=== PATIENT | male | born 1975 | race African-American/Black ===

== ENCOUNTER 2018-10-03 01:23 | Emergency (ER) | payer SELFPAY ==
--- NOTE | 2018-10-03 02:32 | RADIOLOGY REPORT (SQ) ---
EXAM DESCRIPTION: XR KNEE 4 OR MORE VIEWS COMPLETED DATE/TME: 10/03/2018 00:00 CLINICAL HISTORY: 43 years, Male, pain/swelling COMPARISON: None. NUMBER OF VIEWS: Four TECHNIQUE: Four views of the left knee LIMITATIONS: None. FINDINGS: There is no acute fracture or dislocation. Mild medial compartment joint space narrowing with subchondral sclerosis. There is no joint effusion. No radiopaque foreign body. No large soft tissue swelling. IMPRESSION: No acute fracture or dislocation copyright 2010 [employer]- All Rights Reserved
[2018-10-03] MEDS ORDERED: ACETAMINOPHEN 325 MG TABLET PO ONE (02:47)
[2018-10-03] MEDS ORDERED: KETOROLAC TROMETHAMINE 60 MG/2 ML SDV IM ONE (02:47)
--- NOTE | 2018-10-03 02:49 | ER Document Report ---
ED General - General Chief Complaint: Knee Pain Stated Complaint: KNEE PAIN Time Seen by Provider: 10/03/18 02:41 Primary Care Provider: JUAN R HARDEN DO [NO LOCAL MD] - Follow up as needed FINESSE MORA DO [ACTIVE STAFF] - Follow up as needed Notes: Patient is a 43-year-old male without chronic medical history who presents with approximately 4-5 hours of left knee pain. States that he was lying on his cou ch, turned over and began having an intense, throbbing, constant pain to the medial aspect of his left knee. States that it has been constant since that time worsened by range of motion trying to improve the pain. No history of similar pain in the past. Has not seen his primary doctor regarding tonight denies any direct trauma to the knee. Has not noted any swelling, discoloration or abnormal sensation to the area. Does state that the pain shoots up into his thigh. No history of DVT or pulmonary embolus. No fever or constitutional symptoms. Able to walk but states that it does cause severe pain. TRAVEL OUTSIDE OF THE [place] IN LAST 30 DAYS: No - Related Data Allergies/Adverse Reactions: No Known Allergies Allergy (Unverified 10/01/13 00:17) Past Medical History - General Information source: Patient - Social History Smoking Status: Current Every Day Smoker Chew tobacco use (# tins/day): No Frequency of alcohol use: None Drug Abuse: None Family History: Reviewed & Not Pertinent Patient has suicidal ideation: No Patient has homicidal ideation: No Renal/ Medical History: Denies: Hx Peritoneal Dialysis Psychiatric Medical History: Reports: Hx Anxiety, Hx Depression Past Surgical History: Reports: Hx Orthopedic Surgery - hand - Immunizations Hx Diphtheria, Pertussis, Tetanus Vaccination: Yes - 2012 Review of Systems - Review of Systems Notes: Constitutional: Negative for fever. HENT: Negative for sore throat. Eyes: Negative for visual changes. Cardiovascular: Negative for chest pain. Respiratory: Negative for shortness of breath. Gastrointestinal: Negative for abdominal pain, vomiting or diarrhea. Genitourinary: Negative for dysuria. Musculoskeletal: Positive for left knee pain Skin: Negative for rash. Neurological: Negative for headaches, weakness or numbness. 10 point ROS negative except as marked above and in HPI. Physical Exam - Vital signs Vitals: Temp Pulse Resp BP Pulse Ox 98.0 F 85 16 145/65 H 97 10/03/18 01:30 10/03/18 01:30 10/03/18 01:30 10/03/18 01:30 10/03/18 01:30 Interpretation: Hypertensive Notes: PHYSICAL EXAMINATION: GENERAL: Well-appearing, well-nourished and in no acute distress. HEAD: Atraumatic, normocephalic. EYES: sclera anicteric, conjunctiva are normal. ENT: Moist mucous membranes. NECK: Normal range of motion LUNGS: Normal work of breathing HEART: 2+ DP pulses bilaterally, 2+ popliteal pulses bilaterally EXTREMITIES: Full flexion to 90 degrees in the left knee, able to fully extend the knee. There is pain on palpation of the medial aspect of the left knee without any notable swelling or induration to the area. No pitting or edema. No cyanosis. NEUROLOGICAL: No focal neurological deficits. Moves all extremities spontaneously and on command. PSYCH: Normal mood, normal affect. SKIN: Warm, Dry, normal turgor, no rashes or lesions noted. Course - Re-evaluation Re-evalutation: 10/03/18 02:48 No evidence of a septic joint, gout flare, dislocation, or fracture on exam and imaging. There is no notable swelling to the medial aspect of the knee where the patient reports pain. He has strong DP pulses, strong popliteal pulse. He is able to flex the knee to 90 degrees. Able to fully extend the knee. No direct trauma to the area. Somewhat unusual presentation but I do not see any evidence of dangerous pathology at this time. I have advised the patient that there is a degree of diagnostic uncertainty given the somewhat atypical nature of his presentation and he should have a low threshold to return to the emergency department today. I have advised outpatient follow-up with orthopedic surgery if his symptoms are not improving with anti-inflammatories over the next 1-2 days. Vitals wnl. At this time, I do not see an indication for labs or further imaging. Will discharge with conservative measures, return precautions, and follow-up recommendations. - Vital Signs Vital signs: Temp Pulse Resp BP Pulse Ox 98.0 F 85 16 145/65 H 97 10/03/18 01:30 10/03/18 01:30 10/03/18 01:30 10/03/18 01:30 10/03/18 01:30 - Diagnostic Test Radiology reviewed: Image reviewed, Reports reviewed Radiology results interpreted by me: 10/03/18 02:49 Left knee x-ray: No acute fracture or dislocation Discharge - Discharge Clinical Impression: Left knee pain Qualifiers: Chronicity: acute Qualified Code(s): M25.562 - Pain in left knee Condition: Good Disposition: HOME, SELF-CARE Additional Instructions: Your x-ray does not show any acute fracture today. You may have a ligamentous strain. You should continue to take anti-inflammatories such as ibuprofen 600 mg every 6 hours. Continue to apply ice to the area is much your able. Please follow-up with your primary care physician if you do not have improving your symptoms in the next 1-2 weeks. Please return immediately if you develop weakness, numbness, spreading redness from the area, or any other symptoms that are concerning to you. Referrals: JUAN R HARDEN, [NO LOCAL MD] - Follow up as needed FINESSE MORA DO [ACTIVE STAFF] - Follow up as needed
[2018-10-03 03:37] VITALS: BP 120/65
== END 2018-10-03 03:37 | disposition home or self-care (01) ==
LOC: ER 01:23
DX: M25.562 Pain in left knee (principal); F17.200 Nicotine dependence, unspecified, uncomplicated
CPT/HCPCS: 99283; 96372; 73564; J1885

== ENCOUNTER 2018-10-03 13:06 | Emergency (ER) | payer SELFPAY ==
[2018-10-03] MEDS ORDERED: HYDROCODONE/ACETAMINOPHEN 5-325 MG TABLET PO ONE ×2 (14:16→15:55)
--- NOTE | 2018-10-03 14:23 | ER Document Report ---
ED General - General Chief Complaint: Hip Pain Stated Complaint: BACK/LEG PAIN Time Seen by Provider: 10/03/18 14:04 Primary Care Provider: STEFANO CASTELLANO MD [Primary Care Provider] - Follow up as needed Mode of Arrival: Ambulatory Information source: Patient TRAVEL OUTSIDE OF THE [place] IN LAST 30 DAYS: No - HPI Patient complains to provider of: Left hip, low back pain Onset: Other - Chronic Onset/Duration: Gradual, Persistent, Waxing and waning Quality of pain: Burning, Sharp Severity: Severe Pain Level: 4 Associated symptoms: None Exacerbated by: Denies Relieved by: Denies Similar symptoms previously: No Recently seen / treated by doctor: No Notes: 43-year-old -[place] male coming in today chief complaint low back and left hip pain that radiates down the left leg. Symptoms have been going on chronically for weeks. According to the girlfriend, patient is scared of seeing the doctor. He does have a primary care doctor but has not seen him for this yet. He was seen last night for left knee injury and was discharged home. He has no bladder or bowel dysfunction. No saddle anesthesia. No focal weakness. No urinary symptoms. - Related Data Allergies/Adverse Reactions: No Known Allergies Allergy (Verified 10/03/18 13:10) Past Medical History - General Information source: Patient - Social History Smoking Status: Current Every Day Smoker Family History: Reviewed & Not Pertinent Renal/ Medical History: Denies: Hx Peritoneal Dialysis Psychiatric Medical History: Reports: Hx Anxiety, Hx Depression Past Surgical History: Reports: Hx Orthopedic Surgery - hand - Immunizations Hx Diphtheria, Pertussis, Tetanus Vaccination: Yes - 2012 Review of Systems - Review of Systems Notes: Constitutional: No fevers. No chills. EENT: No eye redness. No eye pain. No ear pain. No sore throat. Cardiovascular: No chest pain. No palpitations. Respiratory: No cough. No shortness of breath. No respiratory distress. Gastrointestinal: No abdominal pain. No nausea, vomiting, or diarrhea. Genitourinary: Atraumatic. No lesions. No pain. No discharge. Musculoskeletal: Low back, left hip pain Skin: No rash or lesions. Lymphatic: No swollen lymph nodes. Neurologic: No headache. No syncope. Psychiatric: No suicidal or homicidal ideation. Physical Exam - Vital signs Vitals: Temp Pulse Resp BP Pulse Ox 98.2 F 91 18 136/64 H 100 10/03/18 13:11 10/03/18 13:11 10/03/18 13:11 10/03/18 13:11 10/03/18 13:11 - Notes Notes: General: Well-developed, well-nourished. In no acute distress. Non-toxic appearing. Cardiac: Well-perfused. Regular rate and rhythm. No murmurs, rubs, or gallops. Pulmonary: No respiratory distress. No cyanosis. Bilateral lung morrissey are clear to auscultation. Abdominal: Non-distended. Non-rigid. Bowels sounds are present in all four quadrants. No guarding or rebound. HEENT: Head is atraumatic. Conjunctivae not reddened. No tearing. PERRL. EOMI. Orbits atraumatic. No periorbital swelling or erythema. Oropharynx is without erythema, swelling, or exudates. Neck: Supple. No adenopathy. No meningismus. Dermatologic: Warm with good turgor. No rash. Atraumatic. Chest: Atraumatic. No chest wall tenderness to palpation. Musculoskeletal: Moves all extremities well. No range of motion deficits. no muscular or joint tenderness. The left lower extremity was compared to the right lower extremity and I did not appreciate any edema or erythema compared to the right side. There was no calf tenderness. Dorsalis pedis and posterior tibial pulses were 2+ bilaterally and equal. Genitourinary: Examination deferred Neurologic: No gross neurologic deficits. Psychiatric: Normal mood. Course - Re-evaluation Re-evalutation: 10/03/18 14:22 This is most likely pinched nerve or case of trochanteric bursitis. Will check some plain films to make sure there is not any arthritis or any bony abnormalities. - Vital Signs Vital signs: Temp Pulse Resp BP Pulse Ox 98.2 F 91 18 136/64 H 100 10/03/18 13:11 10/03/18 13:11 10/03/18 13:11 10/03/18 13:11 10/03/18 13:11 - Diagnostic Test Radiology reviewed: Reports reviewed Discharge - Discharge Clinical Impression: Pinched nerve Sciatica Qualifiers: Laterality: left Qualified Code(s): M54.32 - Sciatica, left side Condition: Good Disposition: HOME, SELF-CARE Instructions: Sciatica ([facility]) Additional Instructions: Take your prescriptions as directed. You may need follow-up with your primary care doctor if pain persists. Prescriptions: Hydrocodone/Acetaminophen [Dewey 5-325 mg Tablet] 1 tab PO Q6HP PRN #12 tablet PRN Reason: Cyclobenzaprine HCl 5 mg PO Q8HP PRN #15 tablet PRN Reason: Methylprednisolone [Medrol Dosepack (4 mg/Tab) 21 Tab/Dosepak] 21 tab PO DAILY #1 dspk Referrals: STEFANO CASTELLANO MD [Primary Care Provider] - Follow up as needed
[2018-10-03] MEDS ORDERED: CYCLOBENZAPRINE HCL 10 MG TABLET PO ONE (15:55)
--- NOTE | 2018-10-03 16:03 | RADIOLOGY REPORT (SQ) ---
EXAM DESCRIPTION: HIP LEFT AP/LATERAL; L SPINE WHOLE COMPLETED DATE/TIME: 10/03/2018 2:59 pm REASON FOR STUDY: lbp COMPARISON: None. FINDINGS: Five views lumbosacral spine: No malalignment. Mild disc space narrowing at the lumbosac ral junction. Mild facet arthropathy. No pars defect. No fracture or worrisome bone lesion. Two views pelvis and left hip: Symmetric sclerosis and spurring in both acetabuli. No fracture or w orrisome bone lesion. Mild degenerative sclerosis in the SI joints without ankylosis or erosions sug gested. TECHNICAL DOCUMENTATION: JOB ID: [id number] Reading location - IP/workstation name: [employer] [email or web address]
--- NOTE | 2018-10-03 16:03 | RADIOLOGY REPORT (SQ) ---
EXAM DESCRIPTION: HIP LEFT AP/LATERAL; L SPINE WHOLE COMPLETED DATE/TIME: 10/03/2018 2:59 pm REASON FOR STUDY: lbp COMPARISON: None. FINDINGS: Five views lumbosacral spine: No malalignment. Mild disc space narrowing at the lumbosac ral junction. Mild facet arthropathy. No pars defect. No fracture or worrisome bone lesion. Two views pelvis and left hip: Symmetric sclerosis and spurring in both acetabuli. No fracture or w orrisome bone lesion. Mild degenerative sclerosis in the SI joints without ankylosis or erosions sug gested. 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
[2018-10-03 16:40] VITALS: BP 140/68
== END 2018-10-03 16:39 | disposition home or self-care (01) ==
LOC: ER 13:06
DX: M54.42 Lumbago with sciatica, left side (principal); G58.9 Mononeuropathy, unspecified; F17.200 Nicotine dependence, unspecified, uncomplicated
CPT/HCPCS: 72110; 99283

== ENCOUNTER 2019-01-14 02:34 | Emergency (ER) | payer SELFPAY ==
[2019-01-14] MEDS ORDERED: HYDROCODONE/ACETAMINOPHEN 5-325 MG (6 TAB/ER DISP) PO PRN (03:57)
[2019-01-14] MEDS ORDERED: DEXAMETHASONE SOD PHOS INJ 10 MG/1 ML VIAL IM ONE (03:57)
--- NOTE | 2019-01-14 04:02 | ER Document Report ---
ED General - General Chief Complaint: Leg Pain Stated Complaint: LEG PAIN Time Seen by Provider: 01/14/19 03:43 Primary Care Provider: STEFANO CASTELLANO MD [ACTIVE STAFF] - Follow up in 3-5 days Notes: Patient is a 43-year-old male who presents with complaint of pain that starts in his left hip and radiates into his left anterior thigh and then down the back of his leg into the posterior aspect of his left calf. Patient has had this pain come and go for a few months. He was seen here and September had x-rays of his back at that time. Patient says he does work out. He does not lift weights or do any squats. He says he does do mostly cardio workout. He denies any abdominal pain. No loss of bowel control. No numbness or weakness into the feet or legs. No severe urinary retention. No new trauma. TRAVEL OUTSIDE OF THE [place] IN LAST 30 DAYS: No - Related Data Allergies/Adverse Reactions: No Known Allergies Allergy (Verified 10/03/18 13:10) Past Medical History - Social History Smoking Status: Never Smoker Frequency of alcohol use: None Drug Abuse: None Family History: Reviewed & Not Pertinent Renal/ Medical History: Denies: Hx Peritoneal Dialysis Psychiatric Medical History: Reports: Hx Anxiety, Hx Depression Past Surgical History: Reports: Hx Orthopedic Surgery - hand - Immunizations Hx Diphtheria, Pertussis, Tetanus Vaccination: Yes - 2012 Review of Systems - Review of Systems Notes: My Normal Review Basic REVIEW OF SYSTEMS: CONSTITUTIONAL : Denies fever, chills, or sweats. Denies recent illness. GASTROINTESTINAL: Denies abdominal pain. Denies nausea, vomiting, or diarrhea. Denies constipation. Last BM: GENITOURINARY: Denies difficulty urinating, painful urination, burning, frequency, or blood in urine. MUSCULOSKELETAL: Left-sided back pain being into the left leg SKIN: Denies rash or skin lesions. NEUROLOGICAL: Denies sensory or motor loss. ALL OTHER SYSTEMS REVIEWED AND NEGATIVE. Physical Exam - Vital signs Vitals: Temp Pulse Resp BP Pulse Ox 98 F 60 14 123/76 98 01/14/19 02:39 01/14/19 02:39 01/14/19 02:39 01/14/19 02:39 01/14/19 02:39 - Notes Notes: General Appearance: Well nourished, alert, cooperative, no acute distress, moderate obvious discomfort. Vitals: reviewed, See vital signs table. Eyes: PERRL, EOMI, Conjuctiva clear Abdomen: Normal BS, soft, No rigidity, No abdominal tenderness, No guarding, no rebound, no abdominal masses, no organomegaly Back: Pain palpation mildly over the left gluteal left posterior lower back and into the left hip. Pain made worse when I do raise his left leg. Extremities: no swelling in the extremities, no edema. Pain when I lift the left leg goes from the left calf of the back to the left leg and also pain into the left anterior thigh. No abnormal redness or warmth. No abnormal swelling or edema. No palpable lumps or abnormalities on exam of the leg. Still sensation intact in the foot. Good dorsalis pedis and posterior tibial pulses. Good capillary refill of all toes. Skin: warm, dry, appropriate color, no rash Neuro: speech clear, oriented x 3, normal affect, responds appropriately to questions. Course - Re-evaluation Re-evalutation: 01/14/19 04:22 I suspect patient most likely has a pinched nerve coming from his back that causes the pain is going into his legs. Pain is easily reproducible with range of motion of the hip or pushing on the low back or hip area. He has no weakness or numbness into the leg. He has no signs of central cord compression and that he does not have loss of bowel control, urine retention, weakness or numbness into his legs. I talked him about the physical therapy. Also talked about stretching exercises such as yoga. I informed he must do gentle stretching exercises. Ligament dose Decadron. I will send him home with all the pain meds for the next 24 hours to help him get through this acute exacerbation. I encouraged him return to ER immediately if he has also bowel control, urinary tension, leg weakness or numbness, or if he feels like is worsening in any way. I do not suspect DVT that the pain radiates from his low back into his leg and also he has no leg swelling or edema on exam. Patient agrees with plan will be discharged home. Dictation of this chart was performed using voice recognition software; therefore, there may be some unintended grammatical errors. - Vital Signs Vital signs: Temp Pulse Resp BP Pulse Ox 98 F 60 14 123/76 98 01/14/19 02:39 01/14/19 02:39 01/14/19 02:39 01/14/19 02:39 01/14/19 02:39 Discharge - Discharge Clinical Impression: Back pain Qualifiers: Back pain location: low back pain Chronicity: acute Back pain laterality: left Sciatica presence: with sciatica Sciatica laterality: sciatica of left side Qualified Code(s): M54.42 - Lumbago with sciatica, left side Condition: Good Disposition: HOME, SELF-CARE Additional Instructions: Please take the medications as prescribed. Please do not lift anything heavy over the next several days. Please still get up and walk around so that your back does not become stiff. Please follow-up with your doctor and discuss possible referral to physical therapy as this may help prevent re-exacerbations of your pain. Please take ibuprofen 400 mg every 6 hours with food. Please return to the ER immediately if you develops loss of control of your bowel function, inability to urinate, or weakness or numbness into your legs. Please consider gentle stretching exercises that also strengthen your back and core such as yoga. I have given you a small bottle of [place]. This is a stronger pain medicine. Please be aware that [place] does have Tylenol (acetaminophen) in it. Please make sure you do not take more than 4000 mg of acetaminophen a day. Do not drive or care for children after you have taken this medication they will make you sleepy and sometimes impair judgment. Forms: Return to Work Referrals: STEFANO CASTELLANO MD [ACTIVE STAFF] - Follow up in 3-5 days
[2019-01-14 04:24] VITALS: BP 122/72
== END 2019-01-14 04:24 | disposition home or self-care (01) ==
LOC: ER 02:34
DX: M54.42 Lumbago with sciatica, left side (principal); M25.552 Pain in left hip; M79.652 Pain in left thigh; M79.605 Pain in left leg
CPT/HCPCS: 99283; 96372; J1100

== ENCOUNTER 2019-02-11 03:12 | Emergency (ER) | payer SELFPAY ==
[2019-02-11] MEDS ORDERED: HYDROCODONE/ACETAMINOPHEN 5-325 MG TABLET PO ONE (03:58)
[2019-02-11] MEDS ORDERED: IBUPROFEN 600 MG TABLET PO ONE (03:58)
--- NOTE | 2019-02-11 04:14 | ER Document Report ---
HPI - HPI Time Seen by Provider: 02/11/19 03:54 Pain Level: 3 Context: Patient is a 43-year-old male that comes to the emergency department for chief complaint of injury to the right index finger. Patient is left-handed. He states that he was trying to open a door, reached around, grabbed the handle, the handle broke and he forcefully hyperextended his index finger. He states initially it hurt but then he started having increased pain and became concerned. He denies numbness, he denies any other locations of pain or injury. Past Medical History - General Information source: Patient - Social History Smoking Status: Unknown if Ever Smoked Frequency of alcohol use: None Drug Abuse: None Lives with: Family Family History: Reviewed & Not Pertinent Renal/ Medical History: Denies: Hx Peritoneal Dialysis Psychiatric Medical History: Reports: Hx Anxiety, Hx Depression Past Surgical History: Reports: Hx Orthopedic Surgery - hand - Immunizations Hx Diphtheria, Pertussis, Tetanus Vaccination: Yes - 2013 [facility] Provider Document - CONSTITUTIONAL General Appearance: WD/WN, No Apparent Distress - INFECTION CONTROL TRAVEL OUTSIDE OF THE [place] IN LAST 30 DAYS: No - HEENT HEENT: Atraumatic, Normocephalic - NECK Neck: Normal Inspection - RESPIRATORY Respiratory: Breath Sounds Normal, No Respiratory Distress - CARDIOVASCULAR Cardiovascular: Regular Rate, Regular Rhythm - GI/ABDOMEN Gastrointestinal: Abdomen Soft, Abdomen Non-Tender - BACK Back: Normal Inspection - MUSCULOSKELETAL/EXTREMETIES Musculoskeletal/Extremeties: MAEW, FROM, Tender - Pain with palpation over the right index finger especially over the MCP and PIP areas. Questionable mild soft tissue swelling. Patient still has range of motion, sensation and capillary refill intact, hand examination otherwise is completely unremarkable, no snuffbox tenderness. Normal upper extremity otherwise. - NEURO Level of Consciousness: Awake, Alert, Appropriate Motor/Sensory: No Motor Deficit, No Sensory Deficit - DERM Integumentary: Warm, Dry, No Rash Course - Re-evaluation Re-evalutation: X-ray unremarkable. Exam does not suggest severe injury, there is no severe pain on palpation, no snuffbox tenderness, range of motion of the finger and still intact, capillary refill and sensation are intact. Patient provided with alex taping, recommendations, work release, and discussed follow-up and return precautions. Patient states understanding and agreement. - Vital Signs Vital signs: Temp Pulse Resp BP Pulse Ox 98.1 F 98 16 116/65 96 02/11/19 03:21 02/11/19 03:21 02/11/19 03:21 02/11/19 03:21 02/11/19 03:21 Procedures - Immobilization Right index finger Pre-Proc Neuro Vasc Exam: Normal Immobilizer type: Other - alex taping Performed by: PCT Post-Proc Neuro Vasc Exam: Normal Alignment checked and good: Yes Discharge - Discharge Clinical Impression: Injury of right index finger Qualifiers: Encounter type: initial encounter Qualified Code(s): S69.91XA - Unspecified injury of right wrist, hand and finger(s), initial encounter Condition: Stable Disposition: HOME, SELF-CARE Additional Instructions: You have sustained a hyperextension injury of the right index finger, there appears to be injury to the tendon causing the swelling, however the x-ray is normal. I recommended doing the alex taping, you can also ice your hand 3-4 times a day for 10 to 15 minutes, I also recommend the naproxen as prescribed. Symptoms should resolve with time. Resume activity as tolerated. Return for any concerning symptoms including severe swelling or pain. Prescriptions: Naproxen 500 mg PO BID PRN #20 tablet PRN Reason: Forms: Return to Work Referrals: ALMA MARTELL DO [Primary Care Provider] - Follow up as needed
--- NOTE | 2019-02-11 05:02 | RADIOLOGY REPORT (SQ) ---
CLINICAL HISTORY: bone pain COMPARISON: None. TECHNIQUE: XR FINGERS 02/11/2019 12:00 AM CDT FINDINGS: There is no fracture. Joint spaces are preserved. Soft tissues are unremarkable. IMPRESSION: No acute osseous findings.
[2019-02-11 05:34] VITALS: BP 110/68
== END 2019-02-11 05:35 | disposition home or self-care (01) ==
LOC: ER 03:12
DX: S69.91XA Unspecified injury of right wrist, hand and finger(s), initial encounter (principal); X50.0XXA Overexertion from strenuous movement or load, initial encounter; Y93.89 Activity, other specified
CPT/HCPCS: 99283

== ENCOUNTER 2019-02-14 00:47 | Emergency (ER) | payer SELFPAY ==
[2019-02-14 00:54] VITALS: BP 138/75
== END 2019-02-14 01:20 | disposition left against medical advice (07) ==
LOC: ER 00:47
DX: Z53.21 Procedure and treatment not carried out due to patient leaving prior to being seen by health care provider (principal)

== ENCOUNTER 2019-02-14 13:40 | Emergency (ER) | payer SELFPAY ==
[2019-02-14] MEDS ORDERED: ACETAMINOPHEN 325 MG TABLET PO ONE (15:00)
[2019-02-14] MEDS ORDERED: AMOXICILLIN TR/POT CLAVULANATE 500-125 MG TAB PO ONE (15:00)
[2019-02-14] MEDS ORDERED: IBUPROFEN 600 MG TABLET PO ONE (15:00)
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
[2019-02-14 16:47] VITALS: BP 114/59
== END 2019-02-14 16:48 | disposition home or self-care (01) ==
LOC: ER 13:40
DX: S69.92XA Unspecified injury of left wrist, hand and finger(s), initial encounter (principal); S61.259A Open bite of unspecified finger without damage to nail, initial encounter; S51.852A Open bite of left forearm, initial encounter; S61.452A Open bite of left hand, initial encounter; M79.642 Pain in left hand; Y04.0XXA Assault by unarmed brawl or fight, initial encounter; W50.3XXA Accidental bite by another person, initial encounter
CPT/HCPCS: 73130; L3908; 99283

== ENCOUNTER 2019-05-02 22:24 | Emergency (ER) | payer SELFPAY ==
[2019-05-02] MEDS ORDERED: CYCLOBENZAPRINE HCL 10 MG TABLET PO ONE (22:54)
--- NOTE | 2019-05-02 22:56 | ER Document Report ---
ED Medical Screen (RME) - General Chief Complaint: Shoulder Pain Stated Complaint: RIGHT SHOULDER PAIN Time Seen by Provider: 05/02/19 22:50 Primary Care Provider: ALMA MARTELL DO [Primary Care Provider] - Follow up as needed Mode of Arrival: Ambulatory Information source: Patient Notes: Patient is an otherwise healthy 43-year-old male presenting to the emergency department with chief complaint of right lateral neck pain that radiates into his shoulder and sends a tingling sensation to the first second and third digits of the right arm. He states while he was at work earlier today he dropped a piece of drywall that he was holding over his head, he states the drywall hit the back of his neck and he has had a stiff neck since that time. Exam: No vertebral tenderness, step-off or deformity. Tenderness to palpation over the musculature in the right lateral neck. I have greeted and performed a rapid initial assessment of this patient. A comprehensive ED assessment and evaluation of the patient, analysis of test results and completion of the medical decision making process will be conducted by additional ED providers. I have specifically instructed the patient or family members with the patient to immediately return to any nursing staff should anything change in the patient's condition or with their chief complaint. This medical record was dictated with voice recognizing software. There may be grammatical, syntax errors that are unintended. TRAVEL OUTSIDE OF THE [place] IN LAST 30 DAYS: No - Related Data Allergies/Adverse Reactions: No Known Allergies Allergy (Verified 10/03/18 13:10) Past Medical History - Social History Chew tobacco use (# tins/day): No Frequency of alcohol use: None Drug Abuse: None Renal/ Medical History: Denies: Hx Peritoneal Dialysis Psychiatric Medical History: Reports: Hx Anxiety, Hx Depression Past Surgical History: Reports: Hx Orthopedic Surgery - hand - Immunizations Hx Diphtheria, Pertussis, Tetanus Vaccination: Yes - 2012 Physical Exam - Vital signs Vitals: Temp Pulse Resp BP Pulse Ox 98.1 F 70 20 126/67 H 99 05/02/19 22:36 05/02/19 22:36 05/02/19 22:36 05/02/19 22:36 05/02/19 22:36 Course - Vital Signs Vital signs: Temp Pulse Resp BP Pulse Ox 98.1 F 70 20 126/67 H 99 05/02/19 22:36 05/02/19 22:36 05/02/19 22:36 05/02/19 22:36 05/02/19 22:36 Doctor's Discharge - Discharge Referrals: ALMA MARTELL DO [Primary Care Provider] - Follow up as needed
--- NOTE | 2019-05-02 23:50 | RADIOLOGY REPORT (SQ) ---
EXAM DESCRIPTION: XR CERVICAL SPINE 4-5 VIEWS COMPLETED DATE/TME: 05/02/2019 22:54 CLINICAL HISTORY: 43 years, Male, drywall fell on posterior neck COMPARISON: None. FINDINGS: 5 views of the cervical spine. Vertebral body height preserved. No cortical step-offs. Neural foramen are patent. Facets are appropriately aligned. No acute abnormalities the lung apices are visualized ribs. Odontoid process is intact. Atlantodental and atlantoaxial intervals preserved. Prevertebral soft tissues unremarkable. Degenerative endplate spondylosis at C5/6. IMPRESSION: 1. No acute abnormality of the cervical spine by plain film criteria. copyright 2010 [employer]- All Rights Reserved
--- NOTE | 2019-05-03 00:26 | ER Document Report ---
ED Extremity Problem, Upper - General Chief Complaint: Shoulder Pain Stated Complaint: RIGHT SHOULDER PAIN Time Seen by Provider: 05/02/19 22:50 Primary Care Provider: ALMA MARTELL DO [Primary Care Provider] - Follow up as needed Mode of Arrival: Ambulatory Information source: Patient Notes: Mr. Chavez is a 43-year-old otherwise healthy male presenting to the ED with right shoulder and neck pain that occurred today after a piece of sheet rock fell on him. Patient denies any head trauma or LOC. He states the pain is primarily localized to the junction of his shoulder and neck with more comfort when it is flexed laterally decreasing the space within that area. He also endorses some numbness and tingling in his fingers however he is able to move them. He denies any chest pain, shortness of breath, shortness of breath, fever or chills. TRAVEL OUTSIDE OF THE [place] IN LAST 30 DAYS: No - Related Data Allergies/Adverse Reactions: No Known Allergies Allergy (Verified 10/03/18 13:10) Past Medical History - General Information source: Patient - Social History Smoking Status: Current Every Day Smoker Chew tobacco use (# tins/day): No Frequency of alcohol use: None Drug Abuse: None Family History: Reviewed & Not Pertinent Patient has suicidal ideation: No Patient has homicidal ideation: No Renal/ Medical History: Denies: Hx Peritoneal Dialysis Psychiatric Medical History: Reports: Hx Anxiety, Hx Depression Past Surgical History: Reports: Hx Orthopedic Surgery - hand - Immunizations Hx Diphtheria, Pertussis, Tetanus Vaccination: Yes - 2012 Review of Systems - Review of Systems Constitutional: See HPI EENT: No symptoms reported Cardiovascular: No symptoms reported Respiratory: No symptoms reported Gastrointestinal: No symptoms reported Genitourinary: No symptoms reported Male Genitourinary: No symptoms reported Musculoskeletal: See HPI Skin: No symptoms reported Hematologic/Lymphatic: No symptoms reported Neurological/Psychological: No symptoms reported Physical Exam - Vital signs Vitals: Temp Pulse Resp BP Pulse Ox 98.1 F 70 20 126/67 H 99 05/02/19 22:36 05/02/19 22:36 05/02/19 22:36 05/02/19 22:36 05/02/19 22:36 Interpretation: Normal - General General appearance: Appears well, Alert - HEENT Head: Normocephalic, Atraumatic Eyes: Normal Pupils: PERRL - Respiratory Respiratory status: No respiratory distress Chest status: Nontender Breath sounds: Normal Chest palpation: Normal - Cardiovascular Rhythm: Regular Heart sounds: Normal auscultation Murmur: No - Abdominal Inspection: Normal Distension: No distension Bowel sounds: Normal Tenderness: Nontender Organomegaly: No organomegaly - Back Back: Normal, Nontender - Extremities General upper extremity: Normal inspection, Nontender, Normal color, Normal ROM, Normal temperature General lower extremity: Normal inspection, Nontender, Normal color, Normal ROM, Normal temperature, Normal weight bearing. No: Tucker's sign Shoulder: Tender, Other. No: Deformity, Dislocation, Instability - Tenderness to palpation at the superior medial-most portion of the trapezius muscle with increased muscular tone. 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 Initial vitals within normal limits. Differential diagnosis includes cervical strain, muscular strain, cervical fracture, shoulder dislocation, shoulder separation 05/03/19 00:02 Patient was ordered for cyclobenzaprine from triage. Likely muscular strain given direct trauma by that she board. Has otherwise normal neurovascularly intact bilateral upper extremities. Good strength, extension and flexion of elbows and shoulders bilaterally. Tenderness to palpation over the right superior most medial most portion of the trapezius with increased muscular tone consistent with muscular strain. Patient had not taken any ibuprofen since approximately 9 PM so he was given a dose of Toradol prior to discharge. Discharged with Flexeril and recommended to use high-dose Motrin every 8 hours for pain control. Also recommended to apply heat to the area and perform some range of motion exercises. Patient given return precautions. - Vital Signs Vital signs: Temp Pulse Resp BP Pulse Ox 98.0 F 68 16 120/62 100 05/03/19 01:36 05/03/19 01:36 05/03/19 01:36 05/03/19 01:36 05/03/19 01:36 Discharge - Discharge Clinical Impression: Muscle strain, Muscle stiffness, Neck pain on right side Condition: Good Disposition: HOME, SELF-CARE Instructions: Neck Injury (Cervical Strain) ([facility]) Additional Instructions: It is important that you use of Flexeril 3 times a day as needed for neck pain and stiffness. It is also important that you apply heat to the area for at least 30 to 40 minutes at a time and 30 to 40 minutes off and then perform slow range of motion exercises. I would recommend that you use Motrin 800 mg every 8 hours regularly for the next week. You can use Tylenol in between as needed if your pain worsens. Prescriptions: Cyclobenzaprine HCl [Flexeril 10 mg Tablet] 10 mg PO TIDP PRN #30 tab PRN Reason: For Pain Referrals: ALMA MARTELL DO [Primary Care Provider] - Follow up as needed
[2019-05-03] MEDS ORDERED: KETOROLAC TROMETHAMINE 60 MG/2 ML SDV IM ONE (01:13)
[2019-05-03 01:37] VITALS: BP 120/62
== END 2019-05-03 01:39 | disposition home or self-care (01) ==
LOC: ER 22:24
DX: T14.8XXA Other injury of unspecified body region, initial encounter (principal); M25.511 Pain in right shoulder; M54.2 Cervicalgia; R20.0 Anesthesia of skin; R20.2 Paresthesia of skin; W20.8XXA Other cause of strike by thrown, projected or falling object, initial encounter; Y93.H3 Activity, building and construction; Y99.0 Civilian activity done for income or pay; F17.200 Nicotine dependence, unspecified, uncomplicated
CPT/HCPCS: 72050; J1885

== ENCOUNTER 2019-06-16 12:33 | Emergency (ER) | payer SELFPAY ==
--- NOTE | 2019-06-16 13:12 | ER Document Report ---
HPI - HPI Patient complains to provider of: skin tear Time Seen by Provider: 06/16/19 13:04 Onset: Yesterday Onset/Duration: Sudden Quality of pain: Achy Pain Level: 3 Context: 43-year-old male presents emergency department with skin tear laceration to his right anterior tib-fib. Reports he was messing with a [employer] lights outside standing on the deck and he fell and scraped it against the fence. He reports his tetanus is up-to-date he had one last year. Reports he does not like the site of his own blood cell count a passed out last night. Patient has a large skin tear to the anterior no active bleeding part of the skin tear is already a well approximated. Associated Symptoms: None Exacerbated by: Denies Relieved by: Denies Similar symptoms previously: No Recently seen / treated by doctor: No - CONSTITUTIONAL Constitutional: DENIES: Fever, Chills - MUSCULOSKELETAL Musculoskeletal: REPORTS: Extremity pain - RLE Past Medical History - General Information source: Patient - Social History Smoking Status: Current Every Day Smoker Cigarette use (# per day): Yes Chew tobacco use (# tins/day): No Frequency of alcohol use: None Drug Abuse: None Lives with: Family Family History: Reviewed & Not Pertinent Patient has suicidal ideation: No Patient has homicidal ideation: No Renal/ Medical History: Denies: Hx Peritoneal Dialysis Psychiatric Medical History: Reports: Hx Anxiety, Hx Depression Past Surgical History: Reports: Hx Orthopedic Surgery - hand - Immunizations Hx Diphtheria, Pertussis, Tetanus Vaccination: Yes - 2013 Vertical Provider Document - CONSTITUTIONAL Agree With Documented VS: Yes Exam Limitations: No Limitations General Appearance: WD/WN, No Apparent Distress - INFECTION CONTROL TRAVEL OUTSIDE OF THE [place] IN LAST 30 DAYS: No - HEENT HEENT: Atraumatic, Normocephalic - NECK Neck: Supple - RESPIRATORY Respiratory: No Respiratory Distress - CARDIOVASCULAR Cardiovascular: Regular Rate - MUSCULOSKELETAL/EXTREMETIES Musculoskeletal/Extremeties: MAEW, FROM, Tender - NEURO Level of Consciousness: Awake, Alert, Appropriate - DERM Integumentary: Warm, Dry, Laceration - 2 long approximately 4 cm each skin tears vertically anterior tib-fib. No active bleeding no erythema no warmth no discharge. One skin tear is already well approximated. The other skin tear is very difficult to pull together. Course - Re-evaluation Re-evalutation: 06/16/19 13:38 Patient with skin tear to his anterior tib-fib. xray neg for fx. Area was cleaned very well by Liya HUGHES. Applied 3 large Steri-Strips to 1 of the skin tears the other skin tear is well approximated. Patient was instructed on signs and symptoms of infection. Instructed to return to the ED for concerns but definitely follow-up with primary care provider within a week. He verbalized understanding. Tibia/Fibula X-Ray 06/16/19 13:08 IMPRESSION: NEGATIVE STUDY OF THE RIGHT TIBIA AND FIBULA. NO RADIOGRAPHIC EVIDENCE OF ACUTE INJURY. - Vital Signs Vital signs: Temp Pulse Resp BP Pulse Ox 98.0 F 89 20 126/52 H 100 06/16/19 12:44 06/16/19 12:44 06/16/19 12:44 06/16/19 12:44 06/16/19 12:44 - Diagnostic Test Radiology reviewed: Reports reviewed Discharge - Discharge Clinical Impression: Skin tear right tib-fib Condition: Stable Disposition: HOME, SELF-CARE Instructions: Skin Tear ([facility]), Soap Cleansing ([facility]) Additional Instructions: *You have been treated for a skin tear *Monitor the site for signs of infection such as increasing pain, redness, swelling, warmth *Keep the area clean *Follow up with a primary care provider within 1 week for recheck *Return to ED for signs of infection, worsening condition, changes, needs Monitor your blood pressure. Your blood pressure was elevated today. This may be because you were anxious, in pain or because you need medication. It is important to follow up with your primary care provider for full evaluation. Forms: Elevated Blood Pressure Referrals: ALMA MARTELL DO [Primary Care Provider] - Follow up in 1 week
--- NOTE | 2019-06-16 13:34 | RADIOLOGY REPORT (SQ) ---
EXAM DESCRIPTION: TIBIA FIBULA RIGHT COMPLETED DATE/TIME: 06/16/2019 1:19 pm REASON FOR STUDY: fall laceration COMPARISON: None. NUMBER OF VIEWS: Two views. TECHNIQUE: Two radiographic images acquired of the right tibia and fibula to include the knee and an kle in at least one projection. LIMITATIONS: None. FINDINGS: MINERALIZATION: Normal. BONES: No acute fracture or dislocation. No worrisome bone lesions. SOFT TISSUES: No obvious swelling or foreign body. OTHER: No other significant finding. IMPRESSION: NEGATIVE STUDY OF THE RIGHT TIBIA AND FIBULA. NO RADIOGRAPHIC EVIDENCE OF ACUTE INJURY. TECHNICAL DOCUMENTATION: JOB ID: [id number] [employer]- All Rights Reserved Reading location - IP/workstation name: [email or web address]
[2019-06-16 13:56] VITALS: BP 123/60
== END 2019-06-16 13:57 | disposition home or self-care (01) ==
LOC: ER 12:33
DX: S81.811A Laceration without foreign body, right lower leg, initial encounter (principal); W19.XXXA Unspecified fall, initial encounter; Y93.89 Activity, other specified; F17.210 Nicotine dependence, cigarettes, uncomplicated
CPT/HCPCS: 99283

== ENCOUNTER 2019-07-24 01:14 | Emergency (ER) | payer SELFPAY ==
[2019-07-24] MEDS ORDERED: ACETAMINOPHEN 325 MG TABLET PO ONE ×2 (02:04→08:55)
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
--- NOTE | 2019-07-24 09:42 | RADIOLOGY REPORT (SQ) ---
EXAM DESCRIPTION: CT CERVICAL SPINE WITHOUT COMPLETED DATE/TIME: 07/24/2019 9:19 am REASON FOR STUDY: fall; trauma COMPARISON: None. TECHNIQUE: Axial images acquired through the cervical spine without intravenous contrast. Images re viewed with lung, soft tissue and bone windows. Reconstructed coronal and sagittal MPR images review ed. Images stored on PACS. All CT scanners at this facility use dose modulation, iterative reconstruction, and/or weight based d osing when appropriate to reduce radiation dose to as low as reasonably achievable (ALARA). [facility]: Dose Right [facility]: CareDose [facility]: Dose Right [facility]: Teradose 4D [facility]: [employer] RADIATION DOSE: CT Rad equipment meets quality standard of care and radiation dose reduction techniq ues were employed. CTDIvol: 18.7 mGy. DLP: 454 mGy-cm. mGy. LIMITATIONS: None. FINDINGS: ALIGNMENT: Anatomic. MINERALIZATION: Normal. VERTEBRAL BODIES: No fractures or dislocation. DISCS: No significant disc disease. FACETS, LATERAL MASSES, POSTERIOR ELEMENTS: No fractures. No dislocation. No acute findings. HARDWARE: None in the spine. VISUALIZED RIBS: No fractures. LUNG APICES AND SOFT TISSUES: No significant or acute findings. OTHER: No other significant finding. IMPRESSION: NO ACUTE OR SIGNIFICANT FINDINGS IN THE CERVICAL SPINE. TECHNICAL DOCUMENTATION: JOB ID: [id number] Quality ID # [id number]: Final reports with documentation of one or more dose reduction techniques (e.g., Au tomated exposure control, adjustment of the mA and/or kV according to patient size, use of iterative reconstruction technique) 2010 [employer]- All Rights Reserved Reading location - IP/workstation name: [email or web address]
[2019-07-24 10:09] VITALS: BP 116/56
== END 2019-07-24 10:09 | disposition home or self-care (01) ==
LOC: ER 01:14
DX: S06.0X1A Concussion with loss of consciousness of 30 minutes or less, initial encounter (principal); S00.03XA Contusion of scalp, initial encounter; J01.00 Acute maxillary sinusitis, unspecified; M54.2 Cervicalgia; R51 Headache; Y08.09XA Assault by strike by other specified type of sport equipment, initial encounter; F17.200 Nicotine dependence, unspecified, uncomplicated
CPT/HCPCS: 70450; 72125; 99283

== ENCOUNTER 2019-07-27 10:40 | Emergency (ER) | payer SELFPAY ==
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
[2019-07-27 12:01] LABS: ABSOLUTE BASOPHILS # (AUTO) 0.1 10^3/uL (0.0-0.2); ABSOLUTE EOSINOPHILS # (AUTO) 0.1 10^3/uL (0.0-0.6); ABSOLUTE LYMPHOCYTES (AUTO) 1.3 10^3/uL (0.5-4.7); ABSOLUTE MONOCYTES (AUTO) 0.3 10^3/uL (0.1-1.4); ABSOLUTE NEUT (AUTO) 1.8 10^3/uL (1.7-8.2); BASOPHILS % (AUTO) 1.5 % (0-2); EOSINOPHILS % (AUTO) 3.5 % (0-6); HEMATOCRIT 41.3 % (37.9-51.0); HEMOGLOBIN 13.3 g/dL (13.5-17.0); LYMPHOCYTES % (AUTO) 37.8 % (13-45); MEAN CORPUSCULAR HEMOGLOBIN 24.6 pg (27.0-33.4); MEAN CORPUSCULAR HGB CONC 32.3 g/dL (32.0-36.0); MEAN CORPUSCULAR VOLUME 76 fl (80-97); MONOCYTES % (AUTO) 7.4 % (3-13); PLATELET COUNT 253 10^3/uL (150-450); RED BLOOD COUNT 5.42 10^6/uL (4.35-5.55); RED CELL DISTRIBUTION WIDTH 15.9 % (11.5-14.0); SEGMENTED NEUTROPHILS % (AUTO) 49.8 % (42-78); TOTAL CELLS COUNTED % (AUTO) 100 %; WHITE BLOOD COUNT 3.6 10^3/uL (4.0-10.5)
[2019-07-27 12:15] LABS: ALBUMIN 4.7 g/dL (3.5-5.0); ALKALINE PHOSPHATASE 48 U/L (38-126); ANION GAP 10 (5-19); ASPARTATE AMINO TRANSFERASE 27 U/L (17-59); BILIRUBIN,DIRECT 0.2 mg/dL (0.0-0.4); BILIRUBIN,TOTAL 0.8 mg/dL (0.2-1.3); BLOOD UREA NITROGEN 15 mg/dL (7-20); CALCIUM 10.2 mg/dL (8.4-10.2); CARBON DIOXIDE 29 mmol/L (22-30); CHLORIDE 101 mmol/L (98-107); GLUCOSE 92 mg/dL (75-110); POTASSIUM 4.3 mmol/L (3.6-5.0); TOTAL PROTEIN 8.1 g/dL (6.3-8.2)
--- NOTE | 2019-07-27 12:24 | RADIOLOGY REPORT (SQ) ---
EXAM DESCRIPTION: CT HEAD WITHOUT COMPLETED DATE/TIME: 07/27/2019 12:14 pm REASON FOR STUDY: Head injury with LOC and nausea and vomiting COMPARISON: 07/24/2019 TECHNIQUE: Axial images acquired through the brain without intravenous contrast. Images reviewed wi th bone, brain and subdural windows. Additional sagittal and coronal reconstructions were generated. Images stored on PACS. All CT scanners at this facility use dose modulation, iterative reconstruction, and/or weight based d osing when appropriate to reduce radiation dose to as low as reasonably achievable (ALARA). [facility]: Dose Right [facility]: CareDose [facility]: Dose Right [facility]: Teradose 4D [facility]: [employer] RADIATION DOSE: CT Rad equipment meets quality standard of care and radiation dose reduction techniq ues were employed. CTDIvol: 53.2 mGy. DLP: 1097 mGy-cm. mGy. LIMITATIONS: None. FINDINGS: VENTRICLES: Normal size and contour. CEREBRUM: No masses. No hemorrhage. No midline shift. No evidence for acute infarction. Normal gra y/white matter differentiation. No areas of low density in the white matter. CEREBELLUM: No masses. No hemorrhage. No alteration of density. No evidence for acute infarction. EXTRAAXIAL SPACES: No fluid collections. No masses. ORBITS AND GLOBE: No intra- or extraconal masses. Normal contour of globe without masses. CALVARIUM: No fracture. PARANASAL SINUSES: Small amount of fluid right maxillary sinus. SOFT TISSUES: Decrease in size of left occipital scalp hematoma. OTHER: No other significant finding. IMPRESSION: NORMAL BRAIN CT WITHOUT CONTRAST. EVIDENCE OF ACUTE STROKE: NO. COMMENT: Quality ID # [id number]: Final reports with documentation of one or more dose reduction techniques (e.g., Automated exposure control, adjustment of the mA and/or kV according to patient size, use of iterative reconstruction technique) TECHNICAL DOCUMENTATION: JOB ID: [id number] [employer]- All Rights Reserved Reading location - IP/workstation name: [email or web address]
[2019-07-27] MEDS ORDERED: PHENYTOIN SODIUM INJ/PF 250 MG/5 ML SDV IV ONE (14:39)
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
--- NOTE | 2019-07-27 15:20 | RADIOLOGY REPORT (SQ) ---
EXAM DESCRIPTION: CT CERVICAL SPINE WITHOUT COMPLETED DATE/TIME: 07/27/2019 1:59 pm REASON FOR STUDY: pain COMPARISON: 07/24/2019. TECHNIQUE: Axial images acquired through the cervical spine without intravenous contrast. Images re viewed with lung, soft tissue and bone windows. Reconstructed coronal and sagittal MPR images review ed. Images stored on PACS. All CT scanners at this facility use dose modulation, iterative reconstruction, and/or weight based d osing when appropriate to reduce radiation dose to as low as reasonably achievable (ALARA). [facility]: Dose Right [facility]: CareDose [facility]: Dose Right [facility]: Teradose 4D [facility]: [employer] RADIATION DOSE: CT Rad equipment meets quality standard of care and radiation dose reduction techniq ues were employed. CTDIvol: 22.2 mGy. DLP: 447 mGy-cm. mGy. LIMITATIONS: None. FINDINGS: ALIGNMENT: Anatomic. MINERALIZATION: Normal. VERTEBRAL BODIES: No fractures or dislocation. DISCS: No significant disc disease. FACETS, LATERAL MASSES, POSTERIOR ELEMENTS: No fractures. No dislocation. No acute findings. HARDWARE: None in the spine. VISUALIZED RIBS: No fractures. LUNG APICES AND SOFT TISSUES: No significant or acute findings. OTHER: No other significant finding. IMPRESSION: NO ACUTE OR SIGNIFICANT FINDINGS IN THE CERVICAL SPINE. TECHNICAL DOCUMENTATION: JOB ID: [id number] Quality ID # [id number]: Final reports with documentation of one or more dose reduction techniques (e.g., Au tomated exposure control, adjustment of the mA and/or kV according to patient size, use of iterative reconstruction technique) 2010 [employer]- All Rights Reserved Reading location - IP/workstation name: [email or web address]
--- NOTE | 2019-07-27 16:21 | EKG REPORT ---
SEVERITY:- BORDERLINE ECG - SINUS RHYTHM BORDERLINE T ABNORMALITIES, ANT-LAT LEADS : Confirmed by: Zulma Burns MD 27-Jul-2019 16:21:07
[2019-07-27 17:21] LABS: CREATINE KINASE MB 1.05 ng/mL (<4.55); TROPONIN I < 0.012 ng/mL
[2019-07-27 17:51] LABS: APPEARANCE,URINE SLIGHTLY-CLOUDY; BILIRUBIN,URINE NEGATIVE (NEGATIVE); COLOR,URINE AMBER; GLUCOSE, URINE NEGATIVE (NEGATIVE); KETONES,URINE NEGATIVE (NEGATIVE); LEUKOCYTE ESTERASE,URINE NEGATIVE (NEGATIVE); NITRITE,URINE NEGATIVE (NEGATIVE); PROTEIN,URINE 30 mg/dL (NEGATIVE); URINE SPECIFIC GRAVITY 1.032
[2019-07-27] MEDS ORDERED: OXYCODONE-ACETAMINOPHEN 5-325 MG TABLET PO ONE (18:32)
[2019-07-27 19:07] VITALS: BP 120/74
[2019-07-27 19:21] LABS: URINE AMPHETAMINES SCREEN NEGATIVE; URINE BARBITURATES SCREEN NEGATIVE; URINE BENZODIAZEPINES SCREEN NEGATIVE; URINE MARIJUANA (THC) SCREEN NEGATIVE; URINE METHADONE SCREEN NEGATIVE; URINE PHENCYCLIDINE SCREEN NEGATIVE
[2019-07-27 19:22] LABS: URINE COCAINE SCREEN UNCONFIRMED POSITIVE
== END 2019-07-27 19:05 | disposition home or self-care (01) ==
LOC: ER 10:40
DX: S06.0X1A Concussion with loss of consciousness of 30 minutes or less, initial encounter (principal); S00.03XA Contusion of scalp, initial encounter; R51 Headache; W22.8XXA Striking against or struck by other objects, initial encounter; M54.2 Cervicalgia; R41.3 Other amnesia; R53.81 Other malaise; R53.1 Weakness; R20.0 Anesthesia of skin; H53.8 Other visual disturbances; F17.210 Nicotine dependence, cigarettes, uncomplicated
CPT/HCPCS: 93005; 36415; 82553; 85025; 80053; 81001; 84484; 80307; 70450; 72125; 93010; J1165; 96365; 99291; 99292

== ENCOUNTER 2019-07-28 00:32 | Emergency (ER) | payer SELFPAY ==
[2019-07-28] MEDS ORDERED: BUTALB/ACETAMINOPHEN/CAFFEINE 1 TAB EACH PO ONE (06:26)
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
[2019-07-28 07:21] VITALS: BP 113/53
== END 2019-07-28 07:58 | disposition home or self-care (01) ==
LOC: ER 00:32
DX: S06.0X9D Concussion with loss of consciousness of unspecified duration, subsequent encounter (principal); R51 Headache; R42 Dizziness and giddiness; R11.0 Nausea; M54.2 Cervicalgia; X58.XXXD Exposure to other specified factors, subsequent encounter; F17.200 Nicotine dependence, unspecified, uncomplicated
CPT/HCPCS: 99283; J3490

== ENCOUNTER 2019-08-10 21:37 | Emergency (ER) | payer MEDICAID ==
[2019-08-11] MEDS ORDERED: ACETAMINOPHEN 325 MG TABLET PO ONE (01:02)
--- NOTE | 2019-08-11 01:36 | RADIOLOGY REPORT (SQ) ---
CLINICAL HISTORY: PAIN COMPARISON: None. 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 Joint spaces are preserved. Soft tissues are unremarkable. IMPRESSION: No acute osseous findings.
[2019-08-11] MEDS ORDERED: OXYCODONE HCL IR 5 MG TABLET PO ONE (02:53)
[2019-08-11] MEDS ORDERED: ONDANSETRON 4 MG TAB.RAPDIS PO ONE (02:53)
--- NOTE | 2019-08-11 02:56 | ER Document Report ---
HPI - HPI Time Seen by Provider: 08/11/19 02:44 Pain Level: 5 Context: Patient is a 43-year-old male that comes to the emergency department for chief complaint of injury to his right shoulder. He states that he was bending over and picking up a leaf blower at a store earlier, he states when he did so he felt a sharp pop and started having pain just behind his right shoulder blade, he states now it hurts to move his right shoulder or arm. He states he gets a pulling sensation in the area. He denies difficulty breathing, chest pain, numbness or weakness in his arm or hand, or any other complaints. He denies any diagnosed medical history or daily medications. - REPRODUCTIVE Reproductive: DENIES: : Past Medical History - General Information source: Patient - Social History Smoking Status: Current Every Day Smoker Frequency of alcohol use: None Drug Abuse: None Lives with: Family Family History: Reviewed & Not Pertinent Patient has suicidal ideation: No Patient has homicidal ideation: No Renal/ Medical History: Denies: Hx Peritoneal Dialysis Psychiatric Medical History: Reports: Hx Anxiety, Hx Depression Past Surgical History: Reports: Hx Orthopedic Surgery - hand - Immunizations Hx Diphtheria, Pertussis, Tetanus Vaccination: Yes - 2012 [facility] Provider Document - CONSTITUTIONAL General Appearance: WD/WN, No Apparent Distress - INFECTION CONTROL TRAVEL OUTSIDE OF THE [place] IN LAST 30 DAYS: No - HEENT HEENT: Atraumatic, Normal ENT Exam, Normocephalic - NECK Neck: Normal Inspection - RESPIRATORY Respiratory: Breath Sounds Normal, No Respiratory Distress - CARDIOVASCULAR Cardiovascular: Regular Rate, Regular Rhythm - GI/ABDOMEN Gastrointestinal: Abdomen Soft, Abdomen Non-Tender - BACK Back: Normal Inspection - No midline tenderness, no saddle anesthesia, no signs of trauma. Normal upper and lower extremity range of motion, normal strength, normal distal neurovascular exam. - MUSCULOSKELETAL/EXTREMETIES Musculoskeletal/Extremeties: MAEW, FROM, Tender - There is tenderness at the base of the right clavicle and extending upwards to the supraspinatus at the shoulder. There is mild tenderness along the trapezius muscle as well. Patient can still elevate the right arm almost into full extension above the head. This does have some tenderness but is performed without difficulty. 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 Normal arm, forearm, elbow exam. There is mild pain with palpation over the head of the humerus. No signs of trauma. Unremarkable otherwise. - NEURO Level of Consciousness: Awake, Alert, Appropriate Motor/Sensory: No Motor Deficit, No Sensory Deficit - DERM Integumentary: Warm, Dry, No Rash Course - Re-evaluation Re-evalutation: X-ray is negative. Shoulder exam shows painful palpation over the posterior shoulder and over the top of the rotator cuff, I suspect patient does have a rotator cuff injury. His range of motion is actually quite good, he has no neurovascular deficits, his back exam is unremarkable, his overall examination is reassuring. Discussed results, recommendations, treatment, follow-up, return precautions in detail. Patient states understanding and agreement. He requests a sling and was provided with this with precautions as well. - Vital Signs Vital signs: Temp Pulse Resp BP Pulse Ox 98.5 F 75 20 110/69 99 08/11/19 02:01 08/11/19 02:01 08/11/19 02:01 08/11/19 02:01 08/11/19 02:01 Procedures - Immobilization Right shoulder Pre-Proc Neuro Vasc Exam: Normal Immobilizer type: Sling Performed by: PCT Post-Proc Neuro Vasc Exam: Normal Alignment checked and good: Yes Discharge - Discharge Clinical Impression: Right shoulder pain Qualifiers: Chronicity: acute Qualified Code(s): M25.511 - Pain in right shoulder Condition: Stable Disposition: HOME, SELF-CARE Additional Instructions: The x-ray is normal. Your evaluation is most consistent with an injury to your right rotator cuff. This should resolve with time. I recommend ice for the first day to your shoulder (3-4 times a day for 10 to 15 minutes), afterwards perform heat instead several times a day. Take the anti-inflammatory and muscle x-ray as prescribed, especially the muscle relaxer to help with sleep). You can use the sling or remember to take your arm out multiple times a day and perform range of motion as shown. If symptoms persist follow-up with the orthopedics referral for additional management. Return for any concerning symptoms including severe worsening swelling or pain, developing numbness, or any other concerning symptoms. Prescriptions: Cyclobenzaprine HCl 1 - 2 tab PO Q8H PRN #15 tablet PRN Reason: Naproxen 500 mg PO BID PRN #20 tablet PRN Reason: Referrals: TORIE CASTILLO MD [ACTIVE STAFF] - Follow up in 1 week
[2019-08-11 03:15] VITALS: BP 133/70
== END 2019-08-11 03:40 | disposition home or self-care (01) ==
LOC: ER 21:37
DX: M25.511 Pain in right shoulder (principal); X50.0XXA Overexertion from strenuous movement or load, initial encounter; F17.200 Nicotine dependence, unspecified, uncomplicated
CPT/HCPCS: 73030; J3490 ×2; S0119; 99283

== ENCOUNTER 2019-08-12 03:41 | Emergency (ER) | payer SELFPAY ==
[2019-08-12] MEDS ORDERED: ONDANSETRON 4 MG TAB.RAPDIS PO ONE (03:52)
[2019-08-12] MEDS ORDERED: ONDANSETRON 4 MG TAB.RAPDIS ONE (03:56)
--- NOTE | 2019-08-12 06:07 | ER Document Report ---
ED General - General Chief Complaint: Vomiting/Diarrhea Stated Complaint: VOMITING/DIARRHEA Time Seen by Provider: 08/12/19 06:06 Primary Care Provider: ALMA MARTELL DO [Primary Care Provider] - Follow up as needed Notes: 43-year male previous healthy presents with diarrhea and abdominal cramping, now resolved, nausea with vomiting. Decreased oral intake. Fever chills headache malaise. Recent partner diagnosis of neurovirus. TRAVEL OUTSIDE OF THE [place] IN LAST 30 DAYS: No - Related Data Allergies/Adverse Reactions: No Known Allergies Allergy (Verified 08/11/19 00:56) Home Medications: flexeril, naproxen Past Medical History - Social History Smoking Status: Current Every Day Smoker Family History: Reviewed & Not Pertinent Patient has suicidal ideation: No Patient has homicidal ideation: No - Past Medical History Cardiac Medical History: Reports: Hx Hypertension Renal/ Medical History: Denies: Hx Peritoneal Dialysis Psychiatric Medical History: Reports: Hx Anxiety, Hx Depression Past Surgical History: Reports: Hx Oral Surgery - removed teeth partial, Hx Orthopedic Surgery - hand - Immunizations Hx Diphtheria, Pertussis, Tetanus Vaccination: Yes - 2012 Review of Systems - Review of Systems Notes: REVIEW OF SYSTEMS GEN: Fever malaise ENT: Denies sore throat, nasal discharge, ear pain EYES: Denies blurry vision, eye pain, discharge CV: Denies chest pain, palpitations, edema RESP: Denies cough, shortness of breath, wheezing GI: Diarrhea a MSK: Denies joint pain/swelling, edema, SKIN: Denies rash, skin lesions LYMPH: Denies swollen glands/lymph nodes NEURO: Denies headache, focal weakness or numbness, dizziness PSYCH: Denies depression, suicidal or homicidal ideation PHYSICAL EXAMINATION General: No acute distress, well-nourished Head: Atraumatic, normocephalic ENT: Mouth normal, oropharynx moist, no exudates or tonsillar enlargement Eyes: Conjunctiva normal, pupils equal, lids normal Neck: No JVD, supple, no guarding CVS: Normal rate, regular rhythm, no murmurs Resp: No resp distress, equal and normal breath sounds bilaterally GI: Nondistended, soft, no tenderness to palpation, no rebound or guarding Ext: No deformities, no edema, normal range of motion in upper and lower ext Back: No CVA or midline TTP Skin: No rash, warm Lymphatic: No lymphadeopathy noted Neuro: Awake, alert. Face symmetric. GCS 15. Physical Exam - Vital signs Vitals: Temp Pulse Resp BP Pulse Ox 97.9 F 59 L 14 122/56 L 100 08/12/19 07:39 08/12/19 07:39 08/12/19 07:39 08/12/19 07:39 08/12/19 07:39 Course - Re-evaluation Re-evalutation: 08/12/19 09:10 Viral syndrome Looks good after hydration. Labs are unrevealing flu is negative. Mild leukopenialikely viral in etiology. No history of HIV, cancer or other immune compromise Symptomatically improved, does not meet criteria for antibiotics or Tamiflu Discharged stable condition I have discussed with the patient there likely diagnosis, aftercare plan, follow-up plans and my usual and customary return precautions. They verbalized understanding of this. - Vital Signs Vital signs: Temp Pulse Resp BP Pulse Ox 97.9 F 59 L 14 122/56 L 100 08/12/19 07:39 08/12/19 07:39 08/12/19 07:39 08/12/19 07:39 08/12/19 07:39 - Laboratory Result Diagrams: 08/12/19 04:46 08/12/19 04:46 Laboratory results interpreted by me: 08/12/19 04:46 WBC 3.9 L Hgb 12.1 L Hct 37.7 L MCV 76 L MCH 24.5 L RDW 15.3 H Lymph % (Auto) 46.0 H Absolute Neuts (auto) 1.6 L Discharge - Discharge Clinical Impression: Viral syndrome Condition: Good Disposition: HOME, SELF-CARE Instructions: Antinausea Medication ([facility]), Viral Syndrome ([facility]), Vomiting ([facility]) Prescriptions: Ondansetron [Zofran Odt 4 mg Tablet] 1 - 2 tab PO Q4HP PRN #10 tab.rapdis PRN Reason: Referrals: ALMA MARTELL DO [Primary Care Provider] - Follow up as needed
[2019-08-12] MEDS ORDERED: KETOROLAC TROMETHAMINE INJ/PF 30 MG/1 ML SDV IV ONE (06:09)
[2019-08-12] MEDS ORDERED: NORMAL SALINE 1000 ML 1,000 ML IV ONE (06:09)
[2019-08-12 06:48] LABS: ABSOLUTE EOSINOPHILS # (AUTO) 0.2 10^3/uL (0.0-0.6); ABSOLUTE LYMPHOCYTES (AUTO) 1.8 10^3/uL (0.5-4.7); ABSOLUTE MONOCYTES (AUTO) 0.3 10^3/uL (0.1-1.4); ABSOLUTE NEUT (AUTO) 1.6 10^3/uL (1.7-8.2); ALKALINE PHOSPHATASE 64 U/L (38-126); ANION GAP 6 (5-19); ASPARTATE AMINO TRANSFERASE 26 U/L (17-59); BASOPHILS % (AUTO) 1.2 % (0-2); BILIRUBIN,DIRECT 0.2 mg/dL (0.0-0.4); BILIRUBIN,TOTAL 0.2 mg/dL (0.2-1.3); BLOOD UREA NITROGEN 15 mg/dL (7-20); CALCIUM 9.3 mg/dL (8.4-10.2); CARBON DIOXIDE 28 mmol/L (22-30); CHLORIDE 105 mmol/L (98-107); EOSINOPHILS % (AUTO) 4.2 % (0-6); GLUCOSE 92 mg/dL (75-110); HEMATOCRIT 37.7 % (37.9-51.0); HEMOGLOBIN 12.1 g/dL (13.5-17.0); MEAN CORPUSCULAR HEMOGLOBIN 24.5 pg (27.0-33.4); MEAN CORPUSCULAR HGB CONC 32.2 g/dL (32.0-36.0); MEAN CORPUSCULAR VOLUME 76 fl (80-97); MONOCYTES % (AUTO) 6.6 % (3-13); PLATELET COUNT 243 10^3/uL (150-450); POTASSIUM 3.8 mmol/L (3.6-5.0); RED BLOOD COUNT 4.95 10^6/uL (4.35-5.55); RED CELL DISTRIBUTION WIDTH 15.3 % (11.5-14.0); TOTAL CELLS COUNTED % (AUTO) 100 %; WHITE BLOOD COUNT 3.9 10^3/uL (4.0-10.5)
[2019-08-12] MEDS ORDERED: METOCLOPRAMIDE HCL INJ/PF 10 MG/2 ML SDV IV ONE (07:15)
[2019-08-12 07:19] LABS: A TYPE INFLUENZA AG NEGATIVE (NEGATIVE); B INFLUENZA AG NEGATIVE (NEGATIVE)
[2019-08-12 07:41] VITALS: BP 122/56
== END 2019-08-12 07:46 | disposition home or self-care (01) ==
LOC: ER 03:41
DX: R19.7 Diarrhea, unspecified (principal); R10.84 Generalized abdominal pain; R11.2 Nausea with vomiting, unspecified; R53.81 Other malaise; I10 Essential (primary) hypertension
CPT/HCPCS: 36415; 85025; 80053; 87804; S0119; J1885; J2765; J7030

== ENCOUNTER 2020-03-01 17:26 | Emergency (ER) | payer SELFPAY ==
[2020-03-01] MEDS ORDERED: NORMAL SALINE 1000 ML 1,000 ML IV ONE (18:28)
--- NOTE | 2020-03-01 18:30 | ER Document Report ---
ED Medical Screen (RME) - General Chief Complaint: Dizziness Stated Complaint: DIZZINESS,LIGHTHEADED Time Seen by Provider: 03/01/20 18:24 Primary Care Provider: ALMA MARTELL DO [Primary Care Provider] - Follow up as needed Mode of Arrival: Ambulatory Information source: Patient Notes: 44-year-old male patient presents emergency department chief complaint of dizzi ness, lightheadedness, fatigue, difficulty concentrating and cramping to the bilateral upper arms. 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 He denies any nausea, vomiting, diarrhea, denies any daily home medications. He is alert, oriented, no acute distress noted. Skin warm and dry, vital signs within normal limits. I have greeted and performed a rapid initial assessment of this patient. A comprehensive ED assessment and evaluation of the patient, analysis of test results and completion of the medical decision making process will be conducted by additional ED providers. I have specifically instructed the patient or family members with the patient to immediately return to any nursing staff should anything change in the patient's condition or with their chief complaint. TRAVEL OUTSIDE OF THE [place] IN LAST 30 DAYS: No - Related Data Allergies/Adverse Reactions: No Known Allergies Allergy (Verified 08/11/19 00:56) Past Medical History - Social History Frequency of alcohol use: None Drug Abuse: None - Past Medical History Cardiac Medical History: Reports: Hx Hypertension Renal/ Medical History: Denies: Hx Peritoneal Dialysis Psychiatric Medical History: Reports: Hx Anxiety, Hx Depression Past Surgical History: Reports: Hx Oral Surgery - removed teeth partial, Hx Orthopedic Surgery - hand - Immunizations Hx Diphtheria, Pertussis, Tetanus Vaccination: Yes - 2012 Physical Exam - Vital signs Vitals: Temp Pulse Resp BP Pulse Ox 98.8 F 69 18 133/64 H 100 03/01/20 17:51 03/01/20 17:51 03/01/20 17:51 03/01/20 17:51 03/01/20 17:51 Course - Vital Signs Vital signs: Temp Pulse Resp BP Pulse Ox 98.8 F 69 18 133/64 H 100 03/01/20 17:51 03/01/20 17:51 03/01/20 17:51 03/01/20 17:51 03/01/20 17:51 Doctor's Discharge - Discharge Referrals: ALMA MARTELL DO [Primary Care Provider] - Follow up as needed
[2020-03-01 19:24] LABS: ABSOLUTE BASOPHILS # (AUTO) 0.1 10^3/uL (0.0-0.2); ABSOLUTE EOSINOPHILS # (AUTO) 0.2 10^3/uL (0.0-0.6); ABSOLUTE LYMPHOCYTES (AUTO) 1.9 10^3/uL (0.5-4.7); ABSOLUTE MONOCYTES (AUTO) 0.2 10^3/uL (0.1-1.4); ABSOLUTE NEUT (AUTO) 1.1 10^3/uL (1.7-8.2); BASOPHILS % (AUTO) 1.5 % (0-2); EOSINOPHILS % (AUTO) 5.2 % (0-6); HEMOGLOBIN 13.1 g/dL (13.5-17.0); LYMPHOCYTES % (AUTO) 55.1 % (13-45); MEAN CORPUSCULAR HEMOGLOBIN 24.3 pg (27.0-33.4); MEAN CORPUSCULAR HGB CONC 31.8 g/dL (32.0-36.0); MEAN CORPUSCULAR VOLUME 76 fl (80-97); MONOCYTES % (AUTO) 6.7 % (3-13); PLATELET COUNT 202 10^3/uL (150-450); RED BLOOD COUNT 5.37 10^6/uL (4.35-5.55); RED CELL DISTRIBUTION WIDTH 14.3 % (11.5-14.0); SEGMENTED NEUTROPHILS % (AUTO) 31.5 % (42-78); TOTAL CELLS COUNTED % (AUTO) 100 %; WHITE BLOOD COUNT 3.4 10^3/uL (4.0-10.5)
[2020-03-01 19:43] LABS: ALBUMIN 4.7 g/dL (3.5-5.0); ALKALINE PHOSPHATASE 50 U/L (38-126); ANION GAP 9 (5-19); ASPARTATE AMINO TRANSFERASE 35 U/L (17-59); BILIRUBIN,DIRECT 0.2 mg/dL (0.0-0.4); BILIRUBIN,TOTAL 0.6 mg/dL (0.2-1.3); BLOOD UREA NITROGEN 13 mg/dL (7-20); CALCIUM 9.7 mg/dL (8.4-10.2); CARBON DIOXIDE 29 mmol/L (22-30); CHLORIDE 104 mmol/L (98-107); CREATINE KINASE 642 U/L (55-170); GLUCOSE 81 mg/dL (75-110); POTASSIUM 4.1 mmol/L (3.6-5.0)
--- NOTE | 2020-03-01 20:53 | EKG REPORT ---
SEVERITY:- BORDERLINE ECG - SINUS BRADYCARDIA Borderline LVH PROBABLE LEFT ATRIAL ABNORMALITY : Confirmed by: Topher Larry MD 01-Mar-2020 20:52:45
[2020-03-01 22:14] LABS: APPEARANCE,URINE CLEAR; BILIRUBIN,URINE SMALL (NEGATIVE); COLOR,URINE AMBER; GLUCOSE, URINE NEGATIVE (NEGATIVE); KETONES,URINE TRACE mg/dL (NEGATIVE); LEUKOCYTE ESTERASE,URINE NEGATIVE (NEGATIVE); NITRITE,URINE NEGATIVE (NEGATIVE); PROTEIN,URINE 30 mg/dL (NEGATIVE); URINE SPECIFIC GRAVITY 1.034
[2020-03-02] MEDS ORDERED: NORMAL SALINE 1000 ML 1,000 ML IV ONE (01:41)
--- NOTE | 2020-03-02 01:45 | ER Document Report ---
ED General - General Chief Complaint: Dizziness Stated Complaint: DIZZINESS,LIGHTHEADED Time Seen by Provider: 03/01/20 18:24 Primary Care Provider: RADHA HUERTA MD [ACTIVE STAFF] - Follow up in 3-5 days ANIYA FOSTER MD [COMMUNITY BASED STAFF] - Follow up in 3-5 days Mode of Arrival: Ambulatory Notes: Patient is a 44-year-old male who comes emergency department for chief complaint of feeling dehydrated, feeling weak, feeling tired, and muscle cramps. 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 Patient states that during his workday today he felt lightheaded like he might pass out although this past after he cooled off and hydrated. Patient denies vomiting, syncopal episode, chest pain, difficulty breathing, fever. Patient denies any daily prescribed medications. Patient denies smoking, alcohol, recreational drugs. Patient states he lost 15 pounds over the past 2 months but this was voluntary with cutting carbs out from his diet. TRAVEL OUTSIDE OF THE [place] IN LAST 30 DAYS: No - Related Data Allergies/Adverse Reactions: No Known Allergies Allergy (Verified 08/11/19 00:56) Past Medical History - General Information source: Patient - Social History Smoking Status: Current Every Day Smoker Smoking Education Provided: Yes - <3 min Frequency of alcohol use: None Drug Abuse: None Lives with: Family Family History: Reviewed & Not Pertinent - Past Medical History Cardiac Medical History: Reports: Hx Hypertension Renal/ Medical History: Denies: Hx Peritoneal Dialysis Psychiatric Medical History: Reports: Hx Anxiety, Hx Depression Past Surgical History: Reports: Hx Oral Surgery - removed teeth partial, Hx Orthopedic Surgery - hand - Immunizations Hx Diphtheria, Pertussis, Tetanus Vaccination: Yes - 2012 Review of Systems - Review of Systems Constitutional: See HPI EENT: No symptoms reported Cardiovascular: See HPI Respiratory: No symptoms reported Gastrointestinal: No symptoms reported Genitourinary: No symptoms reported Male Genitourinary: No symptoms reported Musculoskeletal: See HPI Skin: No symptoms reported Hematologic/Lymphatic: No symptoms reported Neurological/Psychological: No symptoms reported Physical Exam - Vital signs Vitals: Temp Pulse Resp BP Pulse Ox 98.8 F 69 18 133/64 H 100 03/01/20 17:51 03/01/20 17:51 03/01/20 17:51 03/01/20 17:51 03/01/20 17:51 - Notes Notes: GENERAL: Alert, interacts well. No acute distress. HEAD: Normocephalic, atraumatic. EYES: Pupils equal, round, and reactive to light. Extraocular movements intact. ENT: Oral mucosa parched, tongue midline. Oropharynx unremarkable. Airway patent. NECK: Full range of motion. Supple. Trachea midline. No lymphadenopathy. LUNGS: Clear to auscultation bilaterally, no wheezes, rales, or rhonchi. No respiratory distress. Non-tender chest wall. HEART: Bradycardic, normal rhythm, no murmur ABDOMEN: Soft, non-tender. Non-distended. EXTREMITIES: Moves all 4 extremities spontaneously. No edema, normal radial and dorsalis pedis pulses bilaterally. No cyanosis. BACK: no cervical, thoracic, lumbar midline tenderness. No saddle anesthesia, normal distal neurovascular exam. Moves all extremities in full range of motion. NEUROLOGICAL: Alert and oriented x3. Normal speech. Cranial nerves II through XII grossly intact. Strength 5/5 in all extremities. PSYCH: Normal affect, normal mood. SKIN: Warm, dry, normal turgor. No rashes or lesions noted. Course - Re-evaluation Re-evalutation: Patient with very dry mucous membranes, otherwise he is quite well-appearing. He is already completed some of his IV fluids and he already feels improved. Vital signs unremarkable. CBC shows mild leukopenia, borderline hemoglobin, nonspecific. Chemistry shows creatinine of 1.36, otherwise unremarkable. CK is in the 600s. Urinalysis shows ketones, elevated specific gravity. There also is some blood in the urine, patient denies gross blood. EKG shows bradycardia which is also noted on patient's exam but patient is very fit and very active. Symptoms resolved after IV fluids. I discussed work-up in detail. I encouraged strongly that patient follow-up to get his hematuria rechecked, he is a smoker, I explained that we could miss cancer if this is disregarded. I discussed recommendations in general, discussed return precautions. Patient and significant other state appreciation and agreement. Stable, well-appearing, asymptomatic at time of discharge. - Vital Signs Vital signs: Temp Pulse Resp BP Pulse Ox 97.9 F 54 L 20 126/78 H 100 03/02/20 03:05 03/02/20 03:05 03/02/20 03:05 03/02/20 03:05 03/02/20 03:05 - Laboratory Result Diagrams: 03/01/20 19:01 03/01/20 19:01 Laboratory results interpreted by me: 03/01/20 03/01/20 03/01/20 19:01 19:01 21:47 WBC 3.4 L Hgb 13.1 L MCV 76 L MCH 24.3 L MCHC 31.8 L RDW 14.3 H Lymph % (Auto) 55.1 H Absolute Neuts (auto) 1.1 L Seg Neutrophils % 31.5 L Creatinine 1.36 H Est GFR (MDRD) Non-Af 56 L Creatine Kinase 642 H Urine Protein 30 H Urine Ketones TRACE H Urine Blood SMALL H Urine Bilirubin SMALL H Urine Urobilinogen 4.0 H - EKG Interpretation by Me Additional EKG results interpreted by me: EKG shows sinus bradycardia at a rate of 49, normal axis, QTC 369, no T wave inversions or ST segment changes in consecutive leads Discharge - Discharge Clinical Impression: Lightheadedness, Muscle cramps, Dehydration Hematuria Qualifiers: Hematuria type: unspecified type Qualified Code(s): R31.9 - Hematuria, unspecified Condition: Stable Disposition: HOME, SELF-CARE Additional Instructions: Your work-up does show significant dehydration. I recommend resting in a cool environment tomorrow and continuing hydration. Your urine does show some blood, this is not specific, but this needs to be rechecked with primary care to make sure we are not missing a concerning cause (including cells that could turn into cancer in the future). See referral, call for followup. Return if you worsen including passing out, chest pain, vomiting, fever, or any other concerning or worsening symptoms. Forms: Return to Work Referrals: ANIYA FOSTER MD [COMMUNITY BASED STAFF] - Follow up in 3-5 days RADHA HUERTA MD [ACTIVE STAFF] - Follow up in 3-5 days
[2020-03-02 03:14] VITALS: BP 126/78
== END 2020-03-02 03:14 | disposition home or self-care (01) ==
LOC: ER 17:26
DX: E86.0 Dehydration (principal); R00.1 Bradycardia, unspecified; R42 Dizziness and giddiness; R25.2 Cramp and spasm; R31.9 Hematuria, unspecified; R53.1 Weakness; R53.83 Other fatigue; I10 Essential (primary) hypertension; F17.200 Nicotine dependence, unspecified, uncomplicated
CPT/HCPCS: 93005; 99284; 36415; 82550; 85025; 80053; 81001; 84484; 93010; J7030